=== PATIENT | male | born 1965 | race Caucasian/White ===

== ENCOUNTER → 2020-02-07 | Outpatient (CLI) | payer BC, OTHER | LOC: M LABSMTC 13:29 | PROVIDERS: ATTEND Family Medicine | DX: Z03.818 Encounter for observation for suspected exposure to other biological agents ruled out (principal); Z11.59 Encounter for screening for other viral diseases | CPT/HCPCS: C9803; U0003 ==

== ENCOUNTER → 2020-09-27 | Outpatient (CLI) | payer SELFPAY | LOC: M LABSMTC 10:51 | PROVIDERS: ATTEND Pediatrics | DX: Z20.822 Contact with and (suspected) exposure to COVID-19 (principal) ==

== ENCOUNTER → 2021-11-19 | Outpatient (CLI) | payer BC, OTHER ==
[~2021-11-19] MED LIST: VITMTA PO
== END ==
LOC: M LABSMTC 09:39
PROVIDERS: ATTEND Anesthesiology
DX: Z01.818 Encounter for other preprocedural examination (principal); Z11.52 Encounter for screening for COVID-19

== ENCOUNTER 2021-11-23 10:28 | Day surgery (SDC) | payer BC, OTHER ==
[~2021-11-23] VITALS: Ht 180.3 cm; Wt 100.2 kg
[~2021-11-23 10:28] MED LIST changes: +LIDOCAINE 2% 100MG/5ML SDV (FOR ANES.) As Ordered ONE; +NS 1,000 ML IV ONE; +propofoL 200 MG/20 ML VIAL As Ordered ONE
[2021-11-23 13:02] VITALS: BP 119/67
== END 2021-11-23 13:10 | disposition home or self-care (01) ==
LOC: M OPP 10:28
PROVIDERS: ATTEND Internal Medicine Gastroenterology
DX: Z12.11 Encounter for screening for malignant neoplasm of colon (principal); Z80.0 Family history of malignant neoplasm of digestive organs; K63.5 Polyp of colon; K57.30 Diverticulosis of large intestine without perforation or abscess without bleeding; K64.0 First degree hemorrhoids; G47.33 Obstructive sleep apnea (adult) (pediatric)

== ENCOUNTER → 2022-07-03 | Outpatient (REF) | payer OTHER, BC ==
[~2022-07-03] MED LIST changes: -LIDOCAINE 2% 100MG/5ML SDV (FOR ANES.) As Ordered ONE; -NS 1,000 ML IV ONE; -propofoL 200 MG/20 ML VIAL As Ordered ONE
== END ==
LOC: M LAB REF 15:01
PROVIDERS: ATTEND Internal Medicine
DX: Z80.0 Family history of malignant neoplasm of digestive organs (principal)

== ENCOUNTER 2024-11-13 17:26 | Inpatient (IN) | payer BC, MEDICARE ==
[~2024-11-13] VITALS: Ht 180.3 cm; Wt 102.4 kg
[2024-11-13] MEDS ORDERED: VITA500C24 PO (18:18)
[2024-11-13] MEDS ORDERED: VITA1CAP14 PO (18:18)
[2024-11-13 18:19] LABS: BASO % 0.4 % (0.0-1.0); EOS # 0.1 10^3/uL (0.0-0.5); EOS % 0.9 % (0.0-3.0); HEMATOCRIT 53.1 % (42.0-52.0); HEMOGLOBIN 17.9 g/dl (13.5-17.5); LYMPH # 0.4 10^3/uL (1.5-5.0); LYMPH % 3.9 % (24.0-44.0); MEAN CORPUSCULAR HEMOGLOBIN 30.4 pg (27.0-33.0); MEAN CORPUSCULAR HGB CONC 33.7 g/dl (32.0-36.5); MEAN CORPUSCULAR VOLUME 90.2 fl (80.0-96.0); MONO # 0.4 10^3/uL (0.0-0.8); MONO % 4.5 % (2.0-8.0); NEUTROPHILS # 8.6 10^3/uL (1.5-8.5); PLATELET COUNT, AUTOMATED 216 10^3/uL (150-450); RED BLOOD COUNT 5.89 10^6/uL (4.30-6.10); WHITE BLOOD COUNT 9.6 10^3/uL (4.0-10.0)
[2024-11-13 18:32] LABS: INR 0.95; PARTIAL THROMBOPLASTIN TIME 24.5 SECONDS (24.8-34.2)
[2024-11-13 18:49] LABS: LIPASE 534 U/L (12-53)
[2024-11-13 18:51] LABS: ALBUMIN 4.2 G/DL (3.2-5.2); ALKALINE PHOSPHATASE 67 U/L (40-129); ALT/SGPT 24 U/L (7.0-40); AST/SGOT 17 U/L (<34); BILIRUBIN,DIRECT 0.2 MG/DL (<0.4); BILIRUBIN,TOTAL 0.8 MG/DL (0.3-1.2); BLOOD UREA NITROGEN 20 MG/DL (9-23); CALCIUM LEVEL 8.6 MG/DL (8.3-10.6); CARBON DIOXIDE LEVEL 27 MMOL/L (20-31); CHLORIDE LEVEL 104 MMOL/L (98-107); CK-MB VALUE MASS < 1.0 NG/ML (<3.6); CREATININE FOR GFR 0.93 MG/DL (0.70-1.30); GLOMERULAR FILTRATION RATE > 60.0 (>49); GLUCOSE, FASTING 144 MG/DL (74-106); POTASSIUM SERUM 4.7 MMOL/L (3.5-5.1); SODIUM LEVEL 140 MMOL/L (136-145); TOTAL PROTEIN 7.1 G/DL (5.7-8.2)
[2024-11-13 18:53] LABS: FREE T4 1.16 NG/DL (0.89-1.76); THYROID STIMULATING HORMONE 1.439 uIU/ML (0.55-4.78)
[2024-11-13 18:57] LABS: CPK CREATINE PHOSPHOKINASE 120 U/L (46-171); MB/CK RELATIVE INDEX 0.83 (< OR =4)
[2024-11-13] MEDS ORDERED: ISOVUE-370 76% 100ML VIAL As Ordered ONE (19:14)
[2024-11-13 19:33] LABS: CK-MB VALUE MASS < 1.0 NG/ML (<3.6)
[2024-11-13 19:35] LABS: CPK CREATINE PHOSPHOKINASE 117 U/L (46-171); MB/CK RELATIVE INDEX 0.85 (< OR =4)
[2024-11-13] MEDS: NS (Normal Saline) 0.9% 1,000 ML IV SCH (20:16)
[2024-11-13] MEDS ORDERED: MOM 30ML SUSPENSION UDC PO PRN (22:55)
[2024-11-13 22:57] LABS: PROCALCITONIN 0.31 ng/ml
[2024-11-14] MEDS: NS (Normal Saline) 0.9% 1,000 ML IV SCH (00:04)
[2024-11-14] MEDS ORDERED: C-101TAB3 PO (00:17)
[2024-11-14] MEDS ORDERED: ACET-840 PO (00:17)
[2024-11-14] MEDS ORDERED: BUTA1CAP PO (00:20)
[2024-11-14] MEDS ORDERED: HOME MED LIST COMPLETE! XX SCH (00:20)
[2024-11-14] MEDS: ONDANSETRON 4MG 2ML VIAL IV ONE (02:16)
[2024-11-14] MEDS ORDERED: KETOROLAC 30 MG/ML 1ML VIAL IV PRN (03:40)
[2024-11-14] MEDS: ACETAMINOPHEN 325 MG TAB PO PRN (04:31)
[2024-11-14] MEDS ORDERED: ONDANSETRON 4MG 2ML VIAL IV PRN (06:00)
[2024-11-14 07:10] LABS: HEMATOCRIT 46.3 % (42.0-52.0); MEAN CORPUSCULAR HEMOGLOBIN 31.1 pg (27.0-33.0); MEAN CORPUSCULAR HGB CONC 33.9 g/dl (32.0-36.5); MEAN CORPUSCULAR VOLUME 91.7 fl (80.0-96.0); PLATELET COUNT, AUTOMATED 196 10^3/uL (150-450); RED BLOOD COUNT 5.05 10^6/uL (4.30-6.10); WHITE BLOOD COUNT 9.1 10^3/uL (4.0-10.0)
[2024-11-14 07:18] LABS: HEMOGLOBIN 15.7 g/dl (13.5-17.5)
[2024-11-14 07:38] LABS: ALBUMIN 3.3 G/DL (3.2-5.2); ALKALINE PHOSPHATASE 52 U/L (40-129); ALT/SGPT 20 U/L (7.0-40); AST/SGOT 11 U/L (<34); BILIRUBIN,TOTAL 0.6 MG/DL (0.3-1.2); BLOOD UREA NITROGEN 17 MG/DL (9-23); CALCIUM LEVEL 7.6 MG/DL (8.3-10.6); CARBON DIOXIDE LEVEL 24 MMOL/L (20-31); CHLORIDE LEVEL 108 MMOL/L (98-107); CREATININE FOR GFR 0.78 MG/DL (0.70-1.30); GLOMERULAR FILTRATION RATE > 60.0 (>49); GLUCOSE, FASTING 117 MG/DL (74-106); SODIUM LEVEL 141 MMOL/L (136-145); TOTAL PROTEIN 5.8 G/DL (5.7-8.2)
[2024-11-14] MEDS ORDERED: PROB250C PO (15:06)
[2024-11-14] MEDS ORDERED: ONDA-282 PO (15:06)
[2024-11-14 15:55] VITALS: BP 128/71; TEMP 98.1; O2SAT 97
== END 2024-11-14 16:10 | disposition home or self-care (01) | DRG 249 ==
LOC: EDBD 17:26 → M ED 18:43 → M ED INP 11-14 00:49
PROVIDERS: ADMIT Student in an Organized Health Care Education/Training Program; ATTEND Student in an Organized Health Care Education/Training Program
DX: A08.11 Acute gastroenteropathy due to Norwalk agent (principal); K80.20 Calculus of gallbladder without cholecystitis without obstruction; R55 Syncope and collapse; G47.33 Obstructive sleep apnea (adult) (pediatric); R91.1 Solitary pulmonary nodule